=== PATIENT | male | born 1950 | race Caucasian/White ===

== ENCOUNTER 2024-05-21 22:15 | Inpatient (IN) ==
[2024-05-21] MEDS ORDERED: IOPAMIDOL 100 ML BOTTLE IV ONE (22:16)
[2024-05-21] MEDS: IPRATROPIUM/ALBUTEROL 3 ML AMPUL.NEB NEB ONE ×2 (22:25→22:40)
[2024-05-21] MEDS: AZITHROMYCIN 500 MG in 0.9 % SODIUM CHLORIDE 250 ML IV ONE (23:01)
[2024-05-21] MEDS: 0.9 % SODIUM CHLORIDE 1,000 ML IV ONE (23:01)
[2024-05-21] MEDS: cefTRIAXone 2 GM in DEXTROSE 5% IN WATER 50 ML IV ONE (23:01)
[2024-05-21] MEDS: ACETAMINOPHEN 1,000 MG/100 ML BAG IV ONE (23:06)
[2024-05-21] MEDS: methylPREDNISolone SOD SUCC 125 MG/2 ML VIAL IV ONE (23:22)
[2024-05-21 23:43] LABS: Basophils # (Auto) 0 K/mcL (0.00-0.30); Basophils % (Auto) 0 % (0.0-2.0); Eosinophils # (Auto) 0 K/mcL (0.00-0.70); Eosinophils % (Auto) 0 % (0.0-7.0); Hematocrit 26.7 % (40.1-51.0); Hemoglobin 8.8 g/dL (13.7-17.5); Lymphocytes # (Auto) 0.08 K/mcL (1.50-4.80); Lymphocytes % (Auto) 1.5 % (15.5-49.0); Mean Cell Volume 100.4 fL (80.0-100.0); Mean Platelet Volume 11.6 fL (8.8-12.5); Monocytes # (Auto) 0.39 K/mcL (0.10-0.90); Monocytes % (Auto) 7.4 % (1.0-12.0); Neutrophils % (Auto) 90.5 % (38.0-78.0); Platelet Count 299 K/mcL (140-440); RBC 2.66 M/mcL (4.63-6.08); Red Cell Distribution Width 15.3 % (11.5-14.5); WBC 5.3 K/mcL (4.5-11.0)
[2024-05-22 00:01] LABS: ALT/SGPT 21 U/L (<40); AST/SGOT 18 U/L (<40); Albumin 2.3 gm/dL (3.2-5.2); Albumin/Globulin Ratio 0.9 (1.0-2.3); Alkaline Phosphatase 54 U/L (39-117); Bilirubin,Total 0.3 mg/dL (0.1-1.0); Blood Urea Nitrogen 33 mg/dL (8-23); Calcium 7.5 mg/dL (8.6-10.4); Carbon Dioxide 22 mmol/L (22-30); Chloride 106 mmol/L (96-108); Globulin 2.5 gm/dL (2.2-3.7); Glomerular Filtration Rate 74; Glucose 97 mg/dL (70-105); Potassium 4.2 mmol/L (3.3-5.1); Sodium 139 mmol/L (133-145)
[2024-05-22] MEDS: KETOROLAC 15 MG/ML VIAL IV ONE (00:39)
[2024-05-22] MEDS: 0.9 % SODIUM CHLORIDE 250 ML IV SCH ×3 (01:56→02:54)
[2024-05-22] MEDS: NOREPINEPHRINE BITARTRATE 16 MG in 0.9 % SODIUM CHLORIDE 234 ML IV SCH (02:06)
[2024-05-22] MEDS: NOREPINEPHRINE 250 ML IV SCH (02:07)
[2024-05-22 02:32] LABS: Appearance,Urine Clear (Clear); Bacteria,Urine 0 /hpf (0); Bilirubin,Urine Negative (Negative); Color,Urine Yellow; Glucose,Urine (UA) Negative (Negative); Ketones,Urine Negative (Negative); Leukocyte Esterase,Urine Negative /uL (Negative); Nitrate,Urine Negative (Negative); PH,Urine 5.5 (5.0-9.0); Protein,Urine 30 mg/dL (Negative); Urine Blood Negative (Negative); Urine RBC 1 /hpf (0-3); Urine Squamous Epithelial Cell 2 /hpf (0-4); Urine WBC 4 /hpf (0-4)
[2024-05-22] MEDS: 0.9 % SODIUM CHLORIDE 250 ML ONE (02:46)
[2024-05-22] MEDS: metroNIDAZOLE 500 MG/100 ML BAG IV ONE (02:53)
[2024-05-22] MEDS ORDERED: ONDANSETRON 4 MG/2 ML VIAL IV PRN ×2 (02:58→08:22)
[2024-05-22] MEDS: 0.9 % SODIUM CHLORIDE 1,000 ML IV SCH (04:16)
[2024-05-22] MEDS: IPRATROPIUM/ALBUTEROL 3 ML AMPUL.NEB NEB ONE (04:25)
[2024-05-22] MEDS ORDERED: SENNOSIDES 1 TABLET PO PRN (08:22)
[2024-05-22] MEDS ORDERED: POTASSIUM CHLORIDE 20 MEQ TABLET PO PRN ×2 (08:22)
[2024-05-22] MEDS ORDERED: POTASSIUM CHLORIDE 40 MEQ in DEXTROSE 5% IN WATER 500 ML IV PRN (08:22)
[2024-05-22] MEDS ORDERED: MAGNESIUM SULFATE 2 GM/50 ML BAG IV PRN (08:22)
[2024-05-22] MEDS: HYDROCORTISONE SOD SUCC 100 MG VIAL IV ONE (08:35)
[2024-05-22] MEDS: DOCUSATE SODIUM 100 MG CAPSULE PO SCH (08:42)
[2024-05-22] MEDS: CEFEPIME 2 GM VIAL IV SCH (08:48)
[2024-05-22] MEDS: ENOXAPARIN 40 MG/0.4 ML SYRINGE SQ SCH (08:49)
[2024-05-22] MEDS: IPRATROPIUM/ALBUTEROL 3 ML AMPUL.NEB NEB SCH (09:05)
[2024-05-22] MEDS: BUDESONIDE 0.5 MG/2 ML AMPUL.NEB NEB SCH (09:06)
[2024-05-22 09:36] LABS: Hematocrit 23.2 % (40.1-51.0); Hemoglobin 7.5 g/dL (13.7-17.5); Mean Cell Volume 101.8 fL (80.0-100.0); Mean Corpuscular HGB Conc 32.3 g/dL (31.0-36.0); Mean Platelet Volume 10.4 fL (8.8-12.5); Platelet Count 188 K/mcL (140-440); RBC 2.28 M/mcL (4.63-6.08); Red Cell Distribution Width 15.2 % (11.5-14.5); WBC 3.5 K/mcL (4.5-11.0)
[2024-05-22 09:58] LABS: Anisocytosis 1+ (None Seen); Band Neutrophils % 43 % (0-10); Hypochromasia 2+ (None Seen); Lymphocytes % 10 % (15-49); Monocytes % (Manual) 4 % (1-12); Platelet Estimate NORMAL (Normal); RBC Morphology ABNORMAL (Normal); Reactive Lymphocytes 2 % (0-2); Segmented Neutrophils % 41 % (38-78)
[2024-05-22 10:29] LABS: ALT/SGPT 21 U/L (<40); AST/SGOT 19 U/L (<40); Albumin 2.2 gm/dL (3.2-5.2); Albumin/Globulin Ratio 0.8 (1.0-2.3); Alkaline Phosphatase 50 U/L (39-117); Bilirubin,Direct < 0.2 mg/dL (0-0.3); Bilirubin,Total 0.3 mg/dL (0.1-1.0); Blood Urea Nitrogen 34 mg/dL (8-23); Calcium 7.8 mg/dL (8.6-10.4); Carbon Dioxide 24 mmol/L (22-30); Chloride 108 mmol/L (96-108); Globulin 2.8 gm/dL (2.2-3.7); Glomerular Filtration Rate 84; Glucose 128 mg/dL (70-105); Lactate Dehydrogenase 275 U/L (135-225); Phosphorous 3.7 mg/dL (2.5-4.5); Potassium 4.5 mmol/L (3.3-5.1); Sodium 142 mmol/L (133-145); Triglycerides 51 mg/dL (<150); Uric Acid 4.7 mg/dL (2.5-8.0)
[2024-05-22] MEDS: IPRATROPIUM/ALBUTEROL 3 ML AMPUL.NEB NEB PRN (12:58)
[2024-05-22] MEDS: AZITHROMYCIN 500 MG in 0.9 % SODIUM CHLORIDE 250 ML IV SCH (14:07)
[2024-05-22] MEDS: 0.9 % SODIUM CHLORIDE 10 ML SYRINGE IV SCH (14:08)
[2024-05-22] MEDS: ACETAMINOPHEN 325 MG TABLET PO PRN (14:21)
[2024-05-22 14:36] LABS: Retic Absolute 0.02 M/mcL (0.03-0.11)
[2024-05-23 05:42] LABS: Basophils # (Auto) 0 K/mcL (0.00-0.30); Basophils % (Auto) 0 % (0.0-2.0); Eosinophils # (Auto) 0 K/mcL (0.00-0.70); Eosinophils % (Auto) 0 % (0.0-7.0); Hematocrit 21.8 % (40.1-51.0); Hemoglobin 6.9 g/dL (13.7-17.5); Lymphocytes # (Auto) 0.07 K/mcL (1.50-4.80); Lymphocytes % (Auto) 1.6 % (15.5-49.0); Mean Cell Volume 101.4 fL (80.0-100.0); Mean Corpuscular HGB Conc 31.7 g/dL (31.0-36.0); Mean Platelet Volume 10.4 fL (8.8-12.5); Monocytes # (Auto) 0.22 K/mcL (0.10-0.90); Neutrophils % (Auto) 92.5 % (38.0-78.0); Platelet Count 197 K/mcL (140-440); RBC 2.15 M/mcL (4.63-6.08); Red Cell Distribution Width 15.1 % (11.5-14.5); WBC 4.4 K/mcL (4.5-11.0)
[2024-05-23 05:56] LABS: ALT/SGPT 25 U/L (<40); AST/SGOT 21 U/L (<40); Albumin 1.9 gm/dL (3.2-5.2); Albumin/Globulin Ratio 0.6 (1.0-2.3); Alkaline Phosphatase 52 U/L (39-117); Bilirubin,Direct < 0.2 mg/dL (0-0.3); Bilirubin,Total 0.3 mg/dL (0.1-1.0); Blood Urea Nitrogen 28 mg/dL (8-23); Calcium 7.9 mg/dL (8.6-10.4); Carbon Dioxide 24 mmol/L (22-30); Chloride 111 mmol/L (96-108); Globulin 3.1 gm/dL (2.2-3.7); Glomerular Filtration Rate 99; Glucose 126 mg/dL (70-105); Lactate Dehydrogenase 278 U/L (135-225); Phosphorous 2.3 mg/dL (2.5-4.5); Potassium 3.6 mmol/L (3.3-5.1); Sodium 143 mmol/L (133-145); Triglycerides 53 mg/dL (<150); Uric Acid 3.6 mg/dL (2.5-8.0)
[2024-05-23] MEDS: PANTOPRAZOLE 40 MG TABLET PO SCH (07:11)
[2024-05-23] MEDS ORDERED: 0.9 % SODIUM CHLORIDE 250 ML IV SCH (07:30)
[2024-05-23] MEDS: HYDROCORTISONE SOD SUCC 100 MG VIAL IV ONE (08:11)
[2024-05-23 09:27] LABS: Anisocytosis 1+ (None Seen); Band Neutrophils % 46 % (0-10); Hypochromasia 2+ (None Seen); Lymphocytes % 8 % (15-49); Monocytes % (Manual) 4 % (1-12); Platelet Estimate NORMAL (Normal); RBC Morphology ABNORMAL (Normal); Segmented Neutrophils % 42 % (38-78); Toxic Granulation 2+ (None Seen)
[2024-05-23] MEDS: hydrOXYzine 25 MG TABLET PO PRN (10:40)
[2024-05-23] MEDS: methylPREDNISolone SOD SUCC 125 MG/2 ML VIAL IV SCH (13:53)
[2024-05-23] MEDS: HYDROXYCHLOROQUINE 200 MG TABLET PO SCH (16:21)
[2024-05-23] MEDS: MIRTAZAPINE 15 MG TABLET PO SCH (16:21)
[2024-05-24 06:19] LABS: ALT/SGPT 32 U/L (<40); AST/SGOT 23 U/L (<40); Albumin 2.1 gm/dL (3.2-5.2); Albumin/Globulin Ratio 0.7 (1.0-2.3); Alkaline Phosphatase 68 U/L (39-117); Bilirubin,Direct < 0.2 mg/dL (0-0.3); Bilirubin,Total 0.3 mg/dL (0.1-1.0); Blood Urea Nitrogen 29 mg/dL (8-23); Carbon Dioxide 23 mmol/L (22-30); Chloride 110 mmol/L (96-108); Glomerular Filtration Rate 99; Glucose 103 mg/dL (70-105); Lactate Dehydrogenase 306 U/L (135-225); Phosphorous 2.3 mg/dL (2.5-4.5); Potassium 4.4 mmol/L (3.3-5.1); Sodium 142 mmol/L (133-145); Triglycerides 83 mg/dL (<150); Uric Acid 3.5 mg/dL (2.5-8.0)
[2024-05-24 07:22] LABS: Hemoglobin 7.9 g/dL (13.7-17.5); Mean Cell Volume 96.4 fL (80.0-100.0); Mean Corpuscular HGB Conc 32.9 g/dL (31.0-36.0); Mean Platelet Volume 10.7 fL (8.8-12.5); Platelet Count 180 K/mcL (140-440); RBC 2.49 M/mcL (4.63-6.08); Red Cell Distribution Width 17.5 % (11.5-14.5); WBC 5.2 K/mcL (4.5-11.0)
[2024-05-24] MEDS: POLYETHYLENE GLYCOL 3350 17 GM PACKET PO PRN (08:31)
[2024-05-24] MEDS: FUROSEMIDE 40 MG/4 ML VIAL IV SCH (08:31)
[2024-05-24] MEDS: ALBUMIN HUMAN 12.5 GM/50 ML VIAL IV SCH (08:31)
[2024-05-24] MEDS: ROFLUMILAST 250 MCG PO SCH (08:32)
[2024-05-24 08:51] LABS: Band Neutrophils % 30 % (0-10); Hypochromasia 2+ (None Seen); Lymphocytes % 1 % (15-49); Macrocytosis 2+ (None Seen); Monocytes % (Manual) 2 % (1-12); Platelet Estimate NORMAL (Normal); RBC Morphology ABNORMAL (Normal); Reactive Lymphocytes 1 % (0-2); Segmented Neutrophils % 66 % (38-78)
[2024-05-24 16:44] VITALS: TEMP 98.7; O2SAT 96
[2024-05-24] MEDS ORDERED: predniSONE 20 MG TABLET PO SCH (21:00)
== END 2024-05-24 16:20 | disposition home or self-care (01) | DRG 871 ==
LOC: ED 22:15 → ICU 05-22 03:49
PROVIDERS: ADMIT Internal Medicine; ATTEND Internal Medicine